=== PATIENT | female | born 1930 | race African-American/Black ===

== ENCOUNTER 2019-12-02 17:46 | Inpatient (IN) | payer MEDICARE ==
[2019-12-02] MEDS ORDERED: cefTRIAXone\\ROCEPHIN 2 GM VIAL ONE (18:06)
[2019-12-02 18:26] LABS: #Eosinphils 0.2 thou/uL (0.0-0.7); #Lymphocytes 1.9 thou/uL (1.20-3.40); #Monocytes 0.3 thou/uL (0.11-0.59); #Neutrophils 4.3 thou/uL (1.40-6.50); %Basophils 0.4 % (0.0-1.0); %Lymphocytes 28.6 % (21.0-51.0); %Monocytes 3.9 % (0.0-10.0); %Neutrophils 64.1 % (42.0-75.0); Hemoglobin 12.7 g/dL (12.0-16.0); Mean Corpuscular HGB CONC 33.8 g/dL (32.0-36.0); Mean Corpuscular Hemoglobin 32.4 pg (27.0-31.0); Mean Platelet Volume 10.4 fL (7.4-10.4); Platelet Count 179 thou/uL (130-400); RBC Distribution Width 13.8 % (11.5-14.5); Red Blood Cell (RBC) Count 3.93 mill/uL (4.20-5.40); White Blood Cell (WBC) Count 6.6 thou/uL (4.8-10.8)
[2019-12-02 18:40] LABS: ALT (SGPT) Less than 7 U/L (8-55); AST (SGOT) 16 U/L (5-34); Albumin 4.6 g/dL (3.4-4.8); Alkaline Phosphatase 134 U/L (40-110); Anion Gap 18 mmol/L (10-20); BUN (Urea Nitrogen) 15 mg/dL (9.8-20.1); Bilirubin, Total 0.6 mg/dL (0.2-1.2); Calc. Creatinine Clearance 0 mL/min (70-130); Calcium 9.5 mg/dL (7.8-10.44); Carbon Dioxide 18 mmol/L (23-31); Chloride 107 mmol/L (98-107); Estimated GFR-MDRD 45; Globulin 4.3 g/dL (2.4-3.5); Glucose 113 mg/dL (83-110); Lipase 20 U/L (8-78); Potassium 4.6 mmol/L (3.5-5.1); Protein, Total 8.9 g/dL (6.0-8.3); Sodium 138 mmol/L (136-145)
[2019-12-02] MEDS ORDERED: Azithromycin 500 MG VIAL ONE ×2 (18:43→19:14)
--- NOTE | 2019-12-02 19:03 | RAD ---
Frontal radiograph chest: 12/02/2019 COMPARISON: 05/28/2017 HISTORY: Cough and cold symptoms : There is atherosclerotic calcification of the aortic arch. Left lung appears relatively clear. There is new dense opacity in the right lung base with obscuration of the right hemidiaphragm. There is blunting of the right costophrenic angle. Findings suggest interval development of right lower lobe consolidation/collapse and associated right pleural effusion. IMPRESSION: New dense opacity in the right lung base consistent with a combination of nonspecific ple ural and parenchymal opacity. Short-term follow-up imaging of the chest following treatment to document resolution advised.
[2019-12-02] MEDS ORDERED: Acetaminophen 650 MG Suppository ONE (19:13)
[2019-12-02 20:06] LABS: Bilirubin Negative (Negative); Blood, Urine Trace (Negative); Glucose, Urine (Dipstick) Negative (Negative); Leukocyte Small (Negative); Nitrite Negative (Negative); Protein, Urine (Dipstick) Trace mg/dL (Neg-Trace); Urobilinogen 0.2 mg/dL (Less than 2)
[2019-12-02 20:08] LABS: Clarity Cloudy (Clear)
[2019-12-02 20:09] LABS: Bacteria/HPF 2+ HPF (None Seen); RBC/HPF 0-3 HPF (0-3); Squamous Epithelial 0-3 HPF (0-3); WBC/HPF 21-50 HPF (0-3)
[2019-12-02 20:10] LABS: Base Excess-Venous -5.5 mmol/L (-2.0 to 3.0); Bicarbonate (HCO3v) 18.6 mmol/L (22.0-28.0); CO2 Tension (PvCO2) 30.8 mmHg (40.0-50.0); Calcium, Ionized 1.06 mmol/L (See Comments:); Chloride 106 mmol/L (98-107); Hemoglobin - Calc 11.4 g/dL (12.0-16.0); Sodium 141 mmol/L (138-145); T. Carbon Dioxide 19.5 mmol/L (22.0-28.0); vO2 Saturation-calc 89.9 % (60.0-85.0)
--- NOTE | 2019-12-02 20:56 | PDOC.FPRHP ---
- History of Present Illness Chief Complaint: Fever, Wheezing History of Present Illness: Pt is an 89 yo female with pmh significant for COPD, CAD s/p stent, hypothyroid , anemia of chronic disease, CKD III, HLD, Parkinson's, Dementia who presents to the emergency department with fever, wheezing. She has been admitted before with aspiration pneumonia. She had increased wheezing requiring a breathing treatment at home, she does not take maintenance inhalers for COPD 2/2 mentation. Family endorsed 1 episode of green sputum with cough but for the most part she is unable to bring up secretions. Symptoms started the day prior to admission. At baseline she is AAO x 0 and responds to very little other than if she is hungry or thirsty via headnod. Family state she does not endorse pain. When eating she needs to be told to swallow. She has ~70 years smoking hx. [facility] ED Course: Pt was given rocephin, azithromycin, duoneb, tylenol, and fluids 30 cc/kg - Allergies/Adverse Reactions Allergies Allergy/AdvReac Type Severity Reaction Status Date / Time nitrofurantoin Allergy Verified 12/02/19 21:18 [From Macrobid] Penicillins Allergy Verified 12/02/19 21:18 Sulfa (Sulfonamide Allergy Verified 12/02/19 21:18 Antibiotics) - Home Medications Medication Instructions Recorded Confirmed Type Amlodipine [Norvasc] 10 mg PO DAILY 12/03/19 12/03/19 History Aspirin [Ecotrin Low Strength] 81 mg PO DAILY 12/03/19 12/03/19 History Carvedilol 6.25 mg PO BID 12/03/19 12/03/19 History Clopidogrel Bisulfate [Clopidogrel] 75 mg PO DAILY 12/03/19 12/03/19 History Estrogens, Conjugated [Premarin 0.625 mg VAG HS 12/03/19 12/03/19 History Cream] Ipratropium/Albuterol Sulfate 3 ml NEB QID PRN 12/03/19 12/03/19 History [Duoneb] Levothyroxine Sodium 75 mcg PO DAILY 12/03/19 12/03/19 History Lisinopril 20 mg PO DAILY 12/03/19 12/03/19 History Memantine HCl [Namenda] 5 mg PO BID 12/03/19 12/03/19 History Polyethylene Glycol 3350 [Miralax] 17 gm PO DAILY PRN 12/03/19 12/03/19 History Potassium Citrate [Urocit-K] 10 meq PO DAILY 12/03/19 12/03/19 History QUEtiapine Fumarate [SEROquel] 25 mg PO BID 12/03/19 12/03/19 History Simvastatin [Zocor] 10 mg PO QPM 12/03/19 12/03/19 History - History PMHx: HLD, COPD, CAD s/p stent, Hx of Constipation, Hypothyroid, Anemia of Chronic Disease, CKD III, Parkinson's, Dementia, R ICA stenosis PSHx: tubal ligation FHx: non-contributory Social: hx of tobacco use for ~70 years, hx of alcohol use - Review of Systems ROS unobtainable: due to mental status General: reports: fever/chills (noted per daughter). denies: weight/appetite/ sleep changes - Vital signs BP: 173/106 HR: 105 RR: 30 Tmax: 100.5 Pox: 95% on RA Wt: 63.5 kg - Physical Exam Constitutional: NAD -Constitutional: AAO x 0, uncomfortable appearing HEENT: PERRLA, EOMI Neck: no LAD, no JVD Heart: RRR, normal S1/S2 -Lungs: diffuse wheezing, rhonchi, no signs of respiratory distress Abdomen: soft, non-tender, bowel sounds present Skin: no rash/lesions, good turgor Heme/Lymphatic: no purpura, no petechia -Psychiatric: AAO X 0, responds to being asked if she is hungry/thirsty but no others questions, tracks around room FMR H&P: Results - Labs Result Diagrams: 12/02/19 18:01 12/02/19 18:01 Lab results: WBC 6.6 thou/uL (4.8-10.8) 12/02/19 18:01 Hgb 12.7 g/dL (12.0-16.0) 12/02/19 18:01 Hct 37.7 % (36.0-47.0) 12/02/19 18:01 MCV 96.0 fL (78.0-98.0) 12/02/19 18:01 Plt Count 179 thou/uL (130-400) 12/02/19 18:01 Neutrophils % 64.1 % (42.0-75.0) 12/02/19 18:01 VBG pCO2 30.8 mmHg (40.0-50.0) L 12/02/19 20:09 VBG pO2 58.1 mmHg (35.0-45.0) H 12/02/19 20:09 Sodium 138 mmol/L (136-145) 12/02/19 18:01 Potassium 4.6 mmol/L (3.5-5.1) 12/02/19 18:01 Chloride 107 mmol/L (98-107) 12/02/19 18:01 Carbon Dioxide 18 mmol/L (23-31) L 12/02/19 18:01 BUN 15 mg/dL (9.8-20.1) 12/02/19 18: Creatinine 1.34 mg/dL (0.6-1.1) H 12/02/19 18:01 Glucose 113 mg/dL (83-110) H 12/02/19 18:01 Lactic Acid 1.7 mmol/L (0.5-2.2) 12/02/19 18: Calcium 9.5 mg/dL (7.8-10.44) 12/02/19 18:01 Total Bilirubin 0.6 mg/dL (0.2-1.2) 12/02/19 18:01 AST 16 U/L (5-34) 12/02/19 18:01 ALT Less than 7 U/L (8-55) L 12/02/19 18: Alkaline Phosphatase 134 U/L (40-110) H 12/02/19 18: B-Natriuretic Peptide 96.8 pg/mL (0-100) 12/02/19 18: Serum Total Protein 8.9 g/dL (6.0-8.3) H 12/02/19 18:01 Albumin 4.6 g/dL (3.4-4.8) 12/02/19 18: Lipase 20 U/L (8-78) 12/02/19 18:01 Urine Ketones Negative mg/dL (Negative) 12/02/19 19:58 Urine Blood Trace (Negative) A 12/02/19 19:58 Urine Nitrite Negative (Negative) 12/02/19 19:58 Ur Leukocyte Esterase Small (Negative) H 12/02/19 19:58 Urine RBC 0-3 HPF (0-3) 12/02/19 19:58 Urine WBC 21-50 HPF (0-3) A 12/02/19 19:58 Ur Squamous Epith Cells 0-3 HPF (0-3) 12/02/19 19:58 Urine Bacteria 2+ HPF (None Seen) A 12/02/19 19:58 - Radiology Interpretation Chest x-ray Status: image reviewed by me, report reviewed by me Additional comment: RLL Consolidation FMR H&P: A/P - Problem List (1) Aspiration pneumonia Current Visit: Yes Status: Acute Code(s): J69.0 - PNEUMONITIS DUE TO INHALATION OF FOOD AND VOMIT (2) Elevated serum creatinine Current Visit: Yes Status: Acute Code(s): R79.89 - OTHER SPECIFIED ABNORMAL FINDINGS OF BLOOD CHEMISTRY (3) COPD exacerbation Current Visit: Yes Status: Acute Code(s): J44.1 - CHRONIC OBSTRUCTIVE PULMONARY DISEASE W (ACUTE) EXACERBATION (4) Parkinson disease Current Visit: Yes Status: Acute Code(s): G20 - PARKINSON'S DISEASE (5) Dementia Current Visit: Yes Status: Acute Code(s): F03.90 - UNSPECIFIED DEMENTIA WITHOUT BEHAVIORAL DISTURBANCE (6) Coronary artery disease Current Visit: Yes Status: Acute Code(s): I25.10 - ATHSCL HEART DISEASE OF [place] CORONARY ARTERY W/O ANG PCTRS - Plan Pt is an 89 yo female here for: # Pneumonia CAP vs Aspiration; CURB 65 score 2 - flagyl, ceftriaxone, azithromycin - 30 cc/kg given in ED, monitor for fluid overload; BNP 96 - no requiring oxygen at this time - tylenol prn # COPD Exacerbation - abx as above - steroids initiated - duonebs scheduled, prn - no home inhalers just duonebs 2/2 inability to properly use inhaler # Elevated Creatinine Unsure if acute vs chronic - recheck in am, given fluids in ED # Parkinson's Dementia - stable - administer medications PO, pureed diet # HTN - continue home meds # Hx of ESBL UTI - send urine for cx # HLD - continue home meds # Hypothyroid - continue home meds # CKD III - at baseline - avoid nephrotoxic agents # Hx of Anemia of Chronic Disease - stable # Hx of constipation - miralax prn Fluids: none Diet: HH pureed VTE: lovenox Code: Full, will need to discuss with family Dispo: admit to tele inpt FMR H&P: Upper Level - Pertinent history 89 year old female with PMH COPD, CAD, HTN, HLD, Hypothyroidism presents with a one day history of cough and fever noted on day of admission per patient's daughter. Patient A&O x0 at baseline. Per daughter, patient is not great at telling them if she is in pain. Patient lives at home and rarely ever leaves. She has a history of Parkinson's dementia and is contracted at baseline, which makes transport difficult. Patient does have children that will come visit her. None of the children have been out of state or traveled anywhere recently. Her son, who was previously in snf and then a half way house, came to live with her from [place] in September. Patient unable to provide ROS. She has had a history of multi drug resistant E. coli UTI previously. Additionally, patient with difficulty swallowing at times and has a history of aspiration pneumonia. Patient's daughter reports that there have been no sick contacts. Patient does not appear to be short of breath; however, she is wheezing. - Pertinent findings General: Patient alert, but oriented x0. She is nonverbal. HEENT: Dry MMM Card: Mildly tachycardic, no appreciable murmur Resp: Diffuse wheezing throughout anteriorly. Due to contractures, unable to adequately assess posteriorly. Patient did not appear to be in any acute distress. Patient appears to be aspirating some secretions during evaluation. Abdom: Soft, patient not grimacing to pain with palpation, non-distended Ext: No cyanosis or edema - Plan Date/Time: 12/02/192054 IKaren, have evaluated this patient and agree with findings/plan as outlined by music industry intern resident. Pertinent changes/additions are listed here. Sepsis 2/2 CAP vs. Aspiration PNA - Patient with low risk factors for COVID19 given no recent travel or exposure to anyone that has traveled. She lives isolated and with not many visitors. Her symptoms only began yesterday. She has several comorbidities. Will place patient on droplet precautions for safety, but will not test at this time. Patient has RLL PNA which can explain her symptoms. - Influenza neg - Will continue Azithromcyin and ceftriaxone to treat for CAP, but will also add flagyl to cover for anaerobes presuming this may be secondary to aspiration. Can consider levoquin in place of azithromycin and ceftriaxone, but given age group, azithromycin and ceftriaxone appear to be better option - Supplemental O2 as needed; patient not currently requiring - Discussed with family that if patient did not improve with antibiotics, would have to consider viral infection as possible etiology. - Once tachypnea and tachycardia resolve, patient can likely be discharged home. A prolonged hospital stay for her could be detrimental. Discussion regarding goals of care going forward may be beneficial as patient's skilled nursing prognosis and quality of life is poor - Procal pending - s/p 30 mL/kg bolus in ED, will start gentle maintenance IVF COPD exacerbation - Diffuse wheezing on exam; likely exacerbated by RLL PNA - Antibiotics as above - Prednisone 40 mg x5 days - Duoneb treatments q4h Tachycardia - Likely combination of infection and duoneb treatments, continue to monitor - Sinus rhythm on EKG Elevated alkaline phosphatase - In setting of elevated total protein and globulins - This could represent bone pathology such as MM; given patient's poor terminal operations supervisor prognosis, not certain a full work up at this point would be beneficial, but it is something to consider CKD stage 3 - Cr 1.3, appears to be at baseline - s/p fluid resuscitation HTN - Continue home BP meds Anemia of chronic disease - Hg/Hct within normal limits; this may be due to dehydration, but will continue to monitor HLD - Can consider discontinuing statin if on it given her age and frailty Carotid artery stenosis - Aware, on ASA and clopidogrel GERD - Not on any preventative medication Hypothyroidism - Continue home medications CAD - Continue ASA DVT PPX: Lovenox Code Status: Full code; had lengthy discussion with patient's daughter who is mPOA regarding goals of care. She would like to speak to all 10 children before making final decision regarding code status. Will follow up later tonight and keep full code for time being. Dispo: Admit to telemetry. Anticipate LOS >48 hours.
[2019-12-02] MEDS ORDERED: Ondansetron PF 4 MG/2 ML Vial IVP PRN (21:18)
[2019-12-02] MEDS ORDERED: Ondansetron ODT 4 MG TAB SL PRN (21:18)
[2019-12-02] MEDS ORDERED: Sodium Chloride 0.9% 1,000 ML IV SCH (21:18)
[2019-12-02] MEDS ORDERED: Acetaminophen 325 MG TAB PO PRN ×2 (21:18→22:52)
[2019-12-02] MEDS ORDERED: methylPREDNISolone Sod Succ 40 MG VIAL IVP SCH (23:15)
[2019-12-02] MEDS ORDERED: Bacteriostatic Water 30 ML VIAL FS PRN (23:16)
[2019-12-02] MEDS: metroNIDAZOLE 500 MG in Premix Bag 1 BAG IVPB SCH (23:41)
[2019-12-03] MEDS ORDERED: Polyethylene Glycol 3350 17 GM Packet PO PRN (01:28)
[2019-12-03] MEDS: Sodium Chloride 0.9% 1,000 ML IV SCH ×2 (01:58→14:39)
[2019-12-03 02:16] VITALS: BMI 20.5
[2019-12-03 04:37] LABS: #Lymphocytes 0.6 thou/uL (1.20-3.40); #Monocytes 0.3 thou/uL (0.11-0.59); #Neutrophils 8.2 thou/uL (1.40-6.50); %Eosinophils 0.1 % (0.0-10.0); %Lymphocytes 6.3 % (21.0-51.0); %Monocytes 2.7 % (0.0-10.0); %Neutrophils 90.9 % (42.0-75.0); Mean Corpuscular Hemoglobin 31.1 pg (27.0-31.0); Mean Corpuscular Volume 97.2 fL (78.0-98.0); Mean Platelet Volume 10.3 fL (7.4-10.4); Platelet Count 140 thou/uL (130-400); RBC Distribution Width 13.7 % (11.5-14.5); Red Blood Cell (RBC) Count 3.54 mill/uL (4.20-5.40); White Blood Cell (WBC) Count 9.1 thou/uL (4.8-10.8)
[2019-12-03 04:59] LABS: Anion Gap 15 mmol/L (10-20); BUN (Urea Nitrogen) 13 mg/dL (9.8-20.1); Calc. Creatinine Clearance 32 mL/min (70-130); Calcium 8.4 mg/dL (7.8-10.44); Carbon Dioxide 16 mmol/L (23-31); Chloride 109 mmol/L (98-107); Estimated GFR-MDRD 61; Glucose 129 mg/dL (83-110); Potassium 3.7 mmol/L (3.5-5.1); Sodium 136 mmol/L (136-145)
[2019-12-03] MEDS: Levothyroxine Sodium 75 MCG TAB PO SCH (06:29)
--- NOTE | 2019-12-03 07:00 | PDOC.FM ---
- Subjective Subjective: Daughter at bedside. No acute events overnight. Pt resting comfortably, A/O x0 but at baseline, does not appear to be in pain. Had long discussion with daughter, who is mPOA, regarding pt's currently medical conditions, acute illness, and prognosis. Pt has 10 children and daughter states 7 of 10 want DNR status but 3, including herself, are not ready to make that decision. Daughter states she is open to speaking with CM and Palliative care team for goals of care, possibly future hospice, HH, and code status. All questions were answered appropriately. Pt currently lives at home with daughter who is primary palliative care coordinator. Daughter states she has lost about 30lbs in past 6mos unintentionally. - Objective MAR Reviewed: Yes Vital Signs & Weight: Vital Signs (12 hours) Temp Pulse Resp BP Pulse Ox 12/03/19 06:00 91 19 94 L 12/03/19 03:46 96.4 F L 101 H 25 H 168/77 H 98 12/03/19 03:28 18 96 12/03/19 02:00 97 26 H 95 12/03/19 01:03 97 12/03/19 00:59 97 12/03/19 00:00 140 H 40 H 85 L 12/02/19 23:40 98.9 F 117 H 16 163/83 H 96 12/02/19 22:52 96 12/02/19 22:00 98.9 F 109 H 26 H 140/88 97 Weight Weight 52.73 kg Result Diagrams: 12/03/19 04:24 12/03/19 04:24 EKG Reviewed by me: Yes (Tele: NSR, no acute events) Phys Exam - Physical Examination Constitutional: NAD (resting comfortably, A/O x0 at baseline) HEENT: moist MMs Neck: supple Difficult exam as patient fights during exam, slight wheeze Cardiovascular: RRR, no significant murmur, no rub Gastrointestinal: soft, non-tender, no distention, positive bowel sounds Musculoskeletal: no edema Neurological: moves all 4 limbs Dx/Plan (1) Aspiration pneumonia Code(s): J69.0 - PNEUMONITIS DUE TO INHALATION OF FOOD AND VOMIT Status: Suspected (2) COPD exacerbation Code(s): J44.1 - CHRONIC OBSTRUCTIVE PULMONARY DISEASE W (ACUTE) EXACERBATION Status: Acute (3) Coronary artery disease Code(s): I25.10 - ATHSCL HEART DISEASE OF [place] CORONARY ARTERY W/O ANG PCTRS Status: Chronic (4) Dementia Code(s): F03.90 - UNSPECIFIED DEMENTIA WITHOUT BEHAVIORAL DISTURBANCE Status: Chronic (5) Parkinson disease Code(s): G20 - PARKINSON'S DISEASE Status: Chronic - Plan Plan: 89yo AAF with h/o end-stage dementia, parkinson's, CKD III, CAD who presents with sepsis #Sepsis 2/2 CAP vs. Aspiration PNA - Initially tachycardic, tachypneic on exam - Pt low risk for COVID19 given no recent travel or exposure to anyone that has traveled. Lives isolated with not many visitors. Sxs began yesterday. She has several comorbidities. Place on droplet precautions for safety, will not test at this time. RLL PNA which can explain sxs. - Influenza neg - Cont Azithro and Rocephin to treat for CAP with Flagyl added for anaerobes as possible aspiration - Supplemental O2 as needed; patient not currently requiring - Procal 4.93, WBC 9.1 - Spoke at length regarding goals of care with daughter, [place], will discuss further, pt may benefit from hospice as poor prognosis and multiepl worsening chronic conditions with weight loss, deconditioning, contractures, and A/O x0 at baseline - Palliative consulted, apprec assistance - Cont gentle IVF hydration - BCx pending #COPD exacerbation - Difficult lung exam, no wheeze this AM, likely exacerbated by RLL PNA - Abx per above - Prednisone 40mg x5d - Duonebs q4h and prn #Hx of ESBL UTI - UA 2+ bacteria, 21/50 WBC, and small LE. Cont abx awaiting UCx. #Parkinson's Dementia - stable, A/O x0 at baseline, end-stage, consider hospice and Palliative for goals of care - administer medications PO, pureed diet #CKD stage 3 - Cr 1.3, appears to be at baseline - s/p fluid resuscitation #HTN - Continue home BP meds #Anemia of chronic disease - Hg/Hct within normal limits; this may be due to dehydration, but will continue to monitor #HLD - Consider discontinuing statin if on it given her age and frailty #Carotid artery stenosis - Aware, on ASA and clopidogrel #Hypothyroidism - Continue home medications #CAD - Continue ASA Code: Full code; had lengthy discussion with patient's daughter who is mPOA regarding goals of care. She would like to speak to all 10 children before making final decision regarding code status. Considering change in DNR this AM, will await family decision. PCP: CIRILO Brock Fluids: NS @ 75cc/hr Diet: Regular, pureed VTE: lovenox Dispo: Admitted to tele inpt. Cont abx, await cultures. Goals of care, code status discussions. Palliative consulted. Await family decisions and provide support. Expected LOS > 48hrs.
[2019-12-03] MEDS ORDERED: methylPREDNISolone Sod Succ 40 MG VIAL IVP SCH (09:00)
[2019-12-03] MEDS: Enoxaparin Sodium 30 MG/0.3 ML SYRINGE SC SCH (09:57)
[2019-12-03] MEDS: metroNIDAZOLE 500 MG in Premix Bag 1 BAG IVPB SCH ×3 (09:57→22:55)
[2019-12-03] MEDS: predniSONE 20 MG TAB PO SCH (10:59)
[2019-12-03] MEDS: Aspirin 81 mg Enteric Coated Tablet PO SCH (10:59)
[2019-12-03] MEDS: Clopidogrel Bisulfate 75 MG TAB PO SCH (11:00)
[2019-12-03] MEDS: Potassium Citrate 10 MEQ TAB PO SCH (11:01)
--- NOTE | 2019-12-03 11:10 | HP ---
Please see the history and physical done by Dr. Arizmendi, for which I agree. The patient seen, evaluated, discussed, and examined with the residents by bedside. HISTORY OF PRESENT ILLNESS: This is an 89-year-old female, prison patient, actually lives at home alone, but progressive dementia and Parkinson's, and sounds like has been chronically aspirating and came in with pneumonia. This seems to be more likely an aspiration pneumonia, is being treated for that. Has had fever and wheezing and that is really brought her in. ALLERGIES: ALL PER THE RESIDENT'S HISTORY AND PHYSICAL, FOR WHICH I AGREE. HOME MEDICATIONS: All per the resident's history and physical, for which I agree. PAST MEDICAL HISTORY: All per the resident's history and physical, for which I agree. PAST SURGICAL HISTORY: All per the resident's history and physical, for which I agree. FAMILY HISTORY: All per the resident's history and physical, for which I agree. SOCIAL HISTORY: All per the resident's history and physical, for which I agree. REVIEW OF SYSTEMS: All per the resident's history and physical, for which I agree. PHYSICAL EXAMINATION: VITAL SIGNS: Blood pressure initially was extremely elevated, but has come down a little bit. Low-grade fever. GENERAL: Demented, does not really respond verbally. Does seem alert, just moans or grunts with every expiration, but the same time, does not appear to be in severe respiratory distress. ENT: Conjunctivae not particularly pale and slightly dry. NECK: No lymphadenopathy or thyromegaly. CHEST: Some scattered wheezes, overall decreased breath sounds. HEART: Regular rate and rhythm. ABDOMEN: Benign. EXTREMITIES: No edema. LABORATORY DATA: Electrolytes significant for a little bit acidotic with a bicarb of 18. White count was not particularly elevated. Chest x-ray showed potential right lower lobe infiltrate. ASSESSMENT AND PLAN: 1. Pneumonia. We are going to treat like community-acquired pneumonia with azithromycin, Rocephin, and Flagyl in case it is actually aspiration pneumonia. 2. Potential urinary tract infection as her urine looked pretty dirty. We are going to get cultures, and keep her on the same antibiotics for that. 3. End-stage Parkinson's and dementia. Discussed with her daughter possibly home health versus home hospice, just in this situation, more help and hopefully while the patient stay at home at this point in time this way. Job ID: [id number]
[2019-12-03] MEDS: Carvedilol 6.25 MG TAB PO SCH ×2 (11:11→16:34)
[2019-12-03] MEDS: Amlodipine 10 MG TAB PO SCH (11:11)
[2019-12-03] MEDS: Lisinopril 20 MG TAB PO SCH (11:12)
[2019-12-03] MEDS ORDERED: Vancomycin HCl 750 MG in Sodium Chloride 0.9% 250 ML 250 ML IVPB SCH (17:00)
[2019-12-03] MEDS ORDERED: cefTRIAXone\\ROCEPHIN 1 GM in Sodium Chloride 0.9% 100 ML IVPB SCH (18:00)
[2019-12-03] MEDS ORDERED: Azithromycin 500 MG in Sodium Chloride 0.9% 250 ML 250 ML IVPB SCH (20:00)
[2019-12-03] MEDS ORDERED: Simvastatin 5 MG TAB PO SCH (21:00)
[2019-12-03] MEDS ORDERED: Estrogens, Conjugated 30 GM TUBE VAG SCH (21:00)
[2019-12-04] MEDS: Sodium Chloride 0.9% 1,000 ML IV SCH (03:01)
[2019-12-04 04:52] LABS: #Lymphocytes 1.5 thou/uL (1.20-3.40); #Monocytes 0.7 thou/uL (0.11-0.59); #Neutrophils 7.5 thou/uL (1.40-6.50); %Basophils 0.1 % (0.0-1.0); %Eosinophils 0.1 % (0.0-10.0); %Lymphocytes 14.9 % (21.0-51.0); %Monocytes 7.1 % (0.0-10.0); %Neutrophils 77.7 % (42.0-75.0); Hemoglobin 9.9 g/dL (12.0-16.0); Mean Corpuscular HGB CONC 32.4 g/dL (32.0-36.0); Mean Corpuscular Hemoglobin 31.6 pg (27.0-31.0); Mean Corpuscular Volume 97.4 fL (78.0-98.0); Mean Platelet Volume 10.7 fL (7.4-10.4); Platelet Count 124 thou/uL (130-400); RBC Distribution Width 13.8 % (11.5-14.5); Red Blood Cell (RBC) Count 3.12 mill/uL (4.20-5.40); White Blood Cell (WBC) Count 9.7 thou/uL (4.8-10.8)
[2019-12-04 05:19] LABS: Anion Gap 12 mmol/L (10-20); BUN (Urea Nitrogen) 17 mg/dL (9.8-20.1); Calc. Creatinine Clearance 27 mL/min (70-130); Calcium 8.4 mg/dL (7.8-10.44); Carbon Dioxide 18 mmol/L (23-31); Chloride 112 mmol/L (98-107); Estimated GFR-MDRD 51; Glucose 123 mg/dL (83-110); Potassium 3.7 mmol/L (3.5-5.1); Sodium 138 mmol/L (136-145)
[2019-12-04] MEDS: Levothyroxine Sodium 75 MCG TAB PO SCH (05:49)
[2019-12-04] MEDS ORDERED: Azithromycin 500 MG in Sodium Chloride 0.9% 250 ML 250 ML IVPB SCH (08:00)
--- NOTE | 2019-12-04 08:32 | PDOC.FM ---
- Subjective Subjective: Stable this morning. Daughter states that pt is taking some food PO. At baseline mentation. No acute events overnight. Daughter has decided to pursue Hospice this AM and is very eager for discharge home. - Objective MAR Reviewed: Yes Vital Signs & Weight: Vital Signs (12 hours) Temp Pulse Resp BP Pulse Ox 12/04/19 08:19 98.4 F 92 16 136/73 95 12/04/19 07:00 88 16 12/04/19 06:00 88 18 93 L 12/04/19 04:00 91 18 94 L 12/04/19 03:25 97.9 F 91 18 121/87 94 L 12/04/19 03:19 88 18 95 12/04/19 02:00 87 20 95 12/04/19 00:00 90 18 93 L 12/03/19 22:51 95 12/03/19 22:00 88 16 94 L Weight Weight 52.73 kg I&O: 12/03/19 12/04/19 12/05/19 06:59 06:59 06:59 Intake Total 1690 Output Total 1200 Balance 490 Result Diagrams: 12/04/19 04:30 12/04/19 04:30 EKG Reviewed by me: Yes (tele: NSR) Phys Exam - Physical Examination Constitutional: NAD (resting comfortably, contracted, A/O x0, at baseline) HEENT: moist MMs Neck: supple Respiratory: no wheezing, no rales, no rhonchi, clear to auscultation bilateral Cardiovascular: RRR, no significant murmur, no rub Gastrointestinal: soft, non-tender, no distention, positive bowel sounds muscle wasting, frail Neurological: non-focal contracted Dx/Plan (1) Aspiration pneumonia Code(s): J69.0 - PNEUMONITIS DUE TO INHALATION OF FOOD AND VOMIT Status: Suspected (2) COPD exacerbation Code(s): J44.1 - CHRONIC OBSTRUCTIVE PULMONARY DISEASE W (ACUTE) EXACERBATION Status: Acute (3) Coronary artery disease Code(s): I25.10 - ATHSCL HEART DISEASE OF [place] CORONARY ARTERY W/O ANG PCTRS Status: Chronic (4) Dementia Code(s): F03.90 - UNSPECIFIED DEMENTIA WITHOUT BEHAVIORAL DISTURBANCE Status: Chronic (5) Parkinson disease Code(s): G20 - PARKINSON'S DISEASE Status: Chronic - Plan Plan: 89yo AAF with h/o end-stage dementia, parkinson's, CKD III, CAD who presents with sepsis #Sepsis 2/2 suspected aspiration PNA - Initially tachycardic, tachypneic on exam - Pt low risk for COVID19 given no recent travel or exposure to anyone that has traveled. Lives isolated with not many visitors. Sxs began yesterday. She has several comorbidities. Place on droplet precautions for safety, will not test at this time. RLL PNA which can explain sxs. - Influenza neg - Cont Azithro and Rocephin to treat for CAP with Flagyl added for anaerobes as suspected aspiration - Supplemental O2 as needed; patient not currently requiring - Procal 4.93, WBC 9.1 - Spoke at length regarding goals of care with daughter, [place], as well as long- term prognosis. Daughter made pt DNR/DNI over weekend and this AM is ready to pursue hospice care. CM, Hospice, and Palliative consulted, apprec assistance. - Cont gentle IVF hydration - BCx 1/2 coag neg staph - contamination. - Speech consulted, high aspiration risk, R/B/A discussed with daughter and moving forward with pureed feeds with known risks #COPD exacerbation - Difficult exam, good aeration, no rales, no wheeze this AM, fights duonebs per daughter, will change duonebs to prn - Abx per above - Prednisone 40mg x5d #Hx of ESBL UTI - UA 2+ bacteria, 21/50 WBC, and small LE. Cont abx. UCx E Coli, awaiting susceptibilities. - Has had PICC prior for tx, been told in past that she was chronic colonizer #Deconditioning, weight loss - 30lb weight loss in past 6 months, likely 2/2 end-stage dementia and parkinson 's - addition of ensure, residence director consulted, apprec recs #Parkinson's Dementia - stable, A/O x0 at baseline, end-stage, pursuing hospice - administer medications PO, pureed diet #CKD stage 3 - Cr 1.3, appears to be at baseline - s/p fluid resuscitation #HTN - Continue home BP meds #Anemia of chronic disease - Hg/Hct within normal limits; this may be due to dehydration, but will continue to monitor #HLD - Consider discontinuing statin if on it given her age and frailty #Carotid artery stenosis - Aware, on ASA and clopidogrel #Hypothyroidism - Continue home medications #CAD - Continue ASA Code: DNR/DNI - daughter, BRAYDON changed code status after long discussion regarding goals of care, prognosis, and now desire to pursue hospice PCP: CIRILO Brock Fluids: NS @ 75cc/hr Diet: Regular, pureed VTE: lovenox Dispo: Admitted to tele inpt. Cont abx, await cultures. Goals of care, code status discussions. Palliative consulted. Transitioning to hospice. Discharge once arranged. Addendum - Attending - Attending Attestation Date/Time: 12/04/19 7812 I personally evaluated the patient and discussed the management with Dr. Munoz. I agree with the History, Examination, Assessment and Plan documented above with any addition or exceptions noted below.
[2019-12-04] MEDS: Carvedilol 6.25 MG TAB PO SCH (08:42)
[2019-12-04] MEDS: predniSONE 20 MG TAB PO SCH (08:43)
[2019-12-04] MEDS: Aspirin 81 mg Enteric Coated Tablet PO SCH (08:43)
[2019-12-04] MEDS: Clopidogrel Bisulfate 75 MG TAB PO SCH (08:43)
[2019-12-04] MEDS: Amlodipine 10 MG TAB PO SCH (08:43)
[2019-12-04] MEDS: Enoxaparin Sodium 30 MG/0.3 ML SYRINGE SC SCH (08:44)
[2019-12-04] MEDS: Lisinopril 20 MG TAB PO SCH (08:44)
[2019-12-04] MEDS: Potassium Citrate 10 MEQ TAB PO SCH (08:45)
[2019-12-04] MEDS: metroNIDAZOLE 500 MG in Premix Bag 1 BAG IVPB SCH (10:15)
[2019-12-04] MEDS ORDERED: Clindamycin 150 MG CAP PO SCH (11:00)
[2019-12-04 11:11] VITALS: BP 136/96; TEMP 99.3
--- NOTE | 2019-12-05 14:10 | DIS ---
DATE OF ADMISSION: 12/02/2019 DATE OF DISCHARGE: 12/04/2019 RESIDENT: Adams Munoz MD ADMITTING ATTENDING: Christiano Green MD DISCHARGE ATTENDING: Goyo Renteria MD CONSULT: Palliative Care. PROCEDURES: Chest x-ray on 12/02/2019, demonstrating a new density opacity in the right lung base consistent with combination of nonspecific pleural and parenchymal opacities. We are going to follow up imaging of the chest to document resolution advised. PRIMARY DIAGNOSES: 1. Sepsis secondary to suspected aspiration pneumonia. 2. Chronic obstructive pulmonary disease exacerbation. 3. 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 SECONDARY DIAGNOSES: 1. Deconditioning with weight loss. 2. History of multidrug resistant urinary tract infection. 3. Parkinson's dementia. 4. Chronic kidney disease, stage 3. 5. Hypertension. 6. Anemia of chronic disease. 7. Hyperlipidemia. 8. Carotid artery stenosis. 9. Hypothyroidism. 10. Coronary artery disease. DISCHARGE MEDICATIONS: 1. MiraLAX 17 g p.o. daily p.r.n. 2. Namenda 5 mg p.o. b.i.d. 3. DuoNeb nebulized q.i.d. p.r.n. 4. Simvastatin 10 mg p.o. q.p.m. 5. Seroquel 25 mg p.o. at bedtime. 6. Potassium 10 mEq p.o. daily. 7. Lisinopril 20 mg p.o. daily. 8. Levothyroxine 75 mcg p.o. daily. 9. Plavix 75 mg p.o. daily. 10. Coreg 6.25 mg p.o. b.i.d. 11. Aspirin 81 mg p.o. daily. 12. Norvasc 10 mg p.o. daily. 13. Benadryl 25 mg p.o. daily p.r.n. 14. Carbidopa and levodopa 25-100 one tablet p.o. t.i.d. 15. Keppra 250 mg p.o. b.i.d. 16. Clindamycin 450 mg p.o. q.8 hours x5 days. 17. Prednisone 40 mg p.o. q.a.m. x2 days. DISCONTINUED MEDICATIONS: Premarin cream. HISTORY OF PRESENT ILLNESS AND HOSPITAL COURSE: The patient is an 89-year-old -Chinese female with past medical history significant for COPD; coronary artery disease, status post stent; hypothyroidism; anemia of chronic disease; CKD 3; and severe Parkinson's dementia, who currently lives at home, who presented to the emergency department with fever and increased work of breathing. Of note, she has been admitted for aspiration pneumonia in the past. Her daughter, medical power of assistant district attorney and primary caregiver, presents with the patient, as the patient is A and O x0 at baseline and nonverbal. Per daughter's report, they had tried there at home DuoNeb with partial improvement of symptoms; however, the patient continued to have a productive cough with green sputum, decreased p.o. intake, and increased work of breathing. In the emergency department, she was given Rocephin, azithromycin, DuoNeb, Tylenol, and fluids. Chest x-ray showed suspected right lower lobe pneumonia, likely aspiration. She was admitted to the floor for further evaluation and management. Regarding the patient's sepsis secondary to the aspiration pneumonia, she was initially tachycardic and tachypneic on exam. This resolved with administration of fluids and antibiotics. The patient was very low risk for COVID-19 due to no recent travel or exposure, was isolated at home and has a more likely explanation of her right lower lobe aspiration pneumonia. She was influenza negative. She was continued on azithromycin and Rocephin and Flagyl was added for anaerobic coverage. This was continued during hospitalization and she was ultimately discharged on clindamycin for a completion of her antibiotic course. The patient did not require any supplemental oxygen. Her procalcitonin was 4.93 and white blood cell count of 9 on admission. She was continued on gentle IV fluid hydration. Blood cultures returned one of two contamination, otherwise negative. Speech was consulted, who stated that the patient was a high aspiration risk. I spoke at length with the daughter, who is medical power of assistant district attorney regarding goals of care, long-term prognosis, and current hospitalization. It was discussed, the patient was being treated for the aspiration pneumonia and this could be treated; however, the patient was a high-aspiration risk and for continued feeds, it was very likely that she would have recurrent events. We also discussed the poor prognosis of her continued progression of her Parkinson's dementia and options including home health and hospice were offered. After discussion and assistance from her palliative care colleagues, daughter decided to make the patient DNR/DNI, signing out of hospital DNR and wanting to be discharged home with home hospice. This was all arranged prior to the patient's discharge home. It is also determined the patient was having a mild COPD exacerbation from this right lower lobe pneumonia and she was continued on steroids and discharged on additional 2 days to finish up her course. She was continued on antibiotics as per above, and it was discussed with the daughter, the patient does not have the ability to use inhalers and that she was continued on her p.r.n. DuoNeb. The patient does also have a history of multidrug resistant UTI. Her urine was initially dirty and prelim report demonstrated that the patient likely had this grown in her urine as well. The daughter has been told in the past that this is a multidrug resistant E coli and there are no antibiotics that we can use to treat this and she has a likely colonizer. The patient also had severe deconditioning and weight loss of 30 pounds over the past 6 months, unintentional. This is likely due to her underlying progressive dementia and Parkinson's and encourage continued feeds as tolerated. For the patient's chronic medical conditions, home medications were continued. At the time of discharge, the patient was stable and improved. She was discharged home to finish a course of antibiotics and steroids. After a long discussion, the patient's daughter, KRISTYN, decided to pursue home hospice and this was arranged prior to discharge. The patient was discharged home with home hospice. All questions were answered appropriately. DISCHARGE PLAN: Discussed with the patient's daughter at bedside, who voiced agreement and understanding. DISPOSITION: Stable. DISCHARGE INSTRUCTIONS: 1. Location: Home with home hospice. 2. Diet: Pureed with aspiration risk as tolerated. 3. Activity: As tolerated. 4. Followup: The patient to follow up with primary care provider within 1 week of discharge. Job ID: [id number]
== END 2019-12-04 14:45 | disposition hospice, home (50) | DRG 871 ==
LOC: ERS 17:46 → 2NO 20:01
PROVIDERS: ADMIT Family Medicine; ATTEND Family Medicine
DX: A41.9 Sepsis, unspecified organism (principal); J69.0 Pneumonitis due to inhalation of food and vomit; J44.1 Chronic obstructive pulmonary disease with (acute) exacerbation; G20 Parkinson's disease; Z66 Do not resuscitate; F02.80 Dementia in other diseases classified elsewhere, unspecified severity, without behavioral disturbance, psychotic disturbance, mood disturbance, and anxiety; N18.3 Chronic kidney disease, stage 3 (moderate); D63.1 Anemia in chronic kidney disease; I12.9 Hypertensive chronic kidney disease with stage 1 through stage 4 chronic kidney disease, or unspecified chronic kidney disease; B96.20 Unspecified Escherichia coli [E. coli] as the cause of diseases classified elsewhere; R53.81 Other malaise; R63.4 Abnormal weight loss; F17.210 Nicotine dependence, cigarettes, uncomplicated; E78.5 Hyperlipidemia, unspecified; I65.29 Occlusion and stenosis of unspecified carotid artery; I25.10 Atherosclerotic heart disease of native coronary artery without angina pectoris; E03.9 Hypothyroidism, unspecified; K59.00 Constipation, unspecified; Z88.0 Allergy status to penicillin; Z88.2 Allergy status to sulfonamides; Z88.8 Allergy status to other drugs, medicaments and biological substances; Z98.51 Tubal ligation status
CPT/HCPCS: 36415; 71045; 80048; 80053; 81003; 81015; 82330; 82803; 83605; 83690; 83880; 84145; 84484; 85025; 87040; 87077; 87086; 87149; 87186; 87804; 93005; 94640; 94760; A4353; J0456; J0696; J1650; J2920; J3370; J3490; J7050; J7512; J7620